=== PATIENT | female | born 1950 | race Caucasian/White ===

== ENCOUNTER → 2016-05-02 | Day surgery (SDC) | payer OTHER, MEDICARE ==
[~2016-05-02] VITALS: Ht 157.5 cm; Wt 136.1 kg
[~2016-05-02] MED LIST: AMARYL 2 MG2 MG PO; ATENOLOL100 MG PO; AZO CRANBERRY450 MG PO; DICLOFENAC SODI75 M3 PO; ELIQUIS5 MG PO; GLUCOSAMINE500 MG PO; LEVEMIR FLEX100 U/ML SC; LEVOTHYROXIN0.075 M1 PO; LISINOPRIL20 MG PO; METFORMIN HYDR500 MG PO; NIACIN500 M3 PO; NORVASC 2.5 MG2.5 MG PO; NOVOLOG100 U/ML SC; ONDANSETRON ODT4 MG PO; PERCOCET 325 MG1 TA2 PO; PERCOCET 325 MG1 TAB PO; POTASSIUM CITR10 MEQ PO; PRIMAXIN IV; PROBIOTIC FORMU1 CA1 PO; SMZ/TMP DS TAB 800 PO; TENORMIN 50MG T50 MG PO; TRAMADOL HCL50 MG PO; VITAMIN B11000 MCG/M PO
--- NOTE | 2016-05-02 12:48 | Operative Report ---
Operative/Inv Procedure Report Surgery Date: 05/02/16 Name of Procedure: left renal eswl: fluroscopy Pre-Operative Diagnosis: left renal stone and colic Post-Operative Diagnosis: Same Estimated Blood Loss: none Surgeon/Credit Negotiator: SWETHA GARCIA MD Anesthesia: laryngeal mask airway Complications: None Operative/Procedure Note Note: The patient was taken to the operating room and placed on the ESWL table in supine position. With the patient awake and participating, timeout was performed to confirm correct identity, procedure, laterality, anesthesia, and other pertinent gena-operative information. After adequate anesthesia, the patient was positioned so that the patient's left flank was positioned over the table cut-out, overlying the dome of the treatment head. Once the patient was adequately sedated, fluoroscopy, as well as Renal ultrasound was used to locate the LEFT renal stone. Renal US confirmed the presence of the stone which measured it to be approximately 8 mm LP stone. The stone was faintly visible with fluoroscopy. Renal US revealed, no hydronephrosis, and no solid tumor, and presence of the stone. The position of the stone was optimized by using fluoroscopy in AP and oblique views;placing the stone within the ESWL c-arm crosshairs. Once the stone's position was optimized, the LEFT renal E.S.W.L. was initiated at low energy level. After noting the patient's tolerance to the shockwaves, the intensitiy was ramped up to maximum level. At the end of the procedure, the left renal stone had dissintegrated. Of note, a total of 2500 shockwaves were delivered to the stone. The patient tolerated the ESWL procedures well, was awakened, then taken to recovery in satisfactory condition via stretcher. The patient was dischared home with pain medications, diet orders, and intructions to catch fragments by straining the urine. The patient to to have follow-up renal ultrasound and KUB in 1 to 2 weeks, prior to follow-up visit in my office. He will then proceed with metabolic stone work-up. Discharge Disposition: PACU CC: SWETHA GARCIA MD
== END ==
LOC: STS 03:10
DX: N20.0 Calculus of kidney (principal); Z87.442 Personal history of urinary calculi; I48.0 Paroxysmal atrial fibrillation; Z79.01 Long term (current) use of anticoagulants; I10 Essential (primary) hypertension; E11.9 Type 2 diabetes mellitus without complications
CPT/HCPCS: J0694; J2250